=== PATIENT | male | born 1965 | race Caucasian/White ===

== ENCOUNTER 2022-09-20 08:29 | Emergency (ER) | payer OTHER ==
[~2022-09-20] VITALS: Ht 170.2 cm; Wt 86.0 kg
[2022-09-20 08:36] VITALS: BP 127/88
--- NOTE | 2022-09-20 08:53 | NUR ---
57/M WALKED IN C/O LEFT ANKLE PAIN AND SWELLING S/P FALL X9DAYS. DENIES LOC OR HEAD TRAUMA. NO OPEN WOUNDS. AAO4, AMBULATORY, VITALS STABLE.
--- NOTE | 2022-09-20 09:40 | NUR ---
URVASHI WRAP X 1. + CMS
--- NOTE | 2022-09-20 09:50 | NUR ---
Patient discharged with v/s stable. Written and verbal after care instructions given and explained. Patient verbalized understanding. Ambulatory with steady gait. All questions addressed prior to discharge. Advised to follow up with PMD.
== END 2022-09-20 09:50 | disposition home or self-care (01) ==
LOC: MED 08:29
DX: S93.402A Sprain of unspecified ligament of left ankle, initial encounter (principal); X58.XXXA Exposure to other specified factors, initial encounter; Y93.89 Activity, other specified; Y92.89 Other specified places as the place of occurrence of the external cause; Y99.8 Other external cause status
CPT/HCPCS: 73610; 99283; Q0092